=== PATIENT | female | born 1970 | race Caucasian/White ===

== ENCOUNTER 2020-01-29 20:09 | Emergency (ER) | payer SELFPAY ==
[~2020-01-29] VITALS: Ht 162.6 cm; Wt 97.5 kg
--- OUTSIDE RECORDS SUMMARY | 2020-01-29 20:12 | XMS REPORT ---
Author Author [facility] Organization [facility] Address Unknown Phone Unavailable Care Team Providers Care Expeller Worker Name Role Phone Unavailable Unavailable Payers Payer Name Policy Type Policy Number Effective Date Expiration D ate Problems This patient has no known problems. Allergies, Adverse Reactions, Alerts Allergy Name Allergy Type Status Severity Reaction(s) Onset Date Inacti ve Date Treating Clinician Comments No Known Allergies DA Active U 2017-02-10 00:00:00 Medications This patient has no known medications.
[2020-01-29] MEDS ORDERED: METHYLPREDNISOLONE SOD SUCC 125 MG/2ML VIAL IV STA (20:37)
[2020-01-29] MEDS ORDERED: KETOROLAC TROMETHAMINE 30 MG/ML VIAL IV STA (20:37)
[2020-01-29] MEDS ORDERED: SODIUM CHLORIDE FLUSH 10 ML SYR INJ PRN (20:45)
[2020-01-29 20:46] LABS: BASOPHILS % 0.5 % (0.0-1.0); EOSINOPHILS # (AUTO) 0.2 (0.0-0.4); EOSINOPHILS % 2.3 % (0.0-6.0); HEMATOCRIT 27.5 % (34.2-44.1); HEMOGLOBIN 8.2 g/dL (12.0-16.0); LYMPHOCYTES # (AUTO) 1.6 (1.0-3.2); LYMPHOCYTES % 21.6 % (18.0-39.1); MEAN CORPUSCULAR HGB CONC 29.8 g/dL (31-35); MEAN CORPUSCULAR VOLUME 70.3 fL (81-99); MONOCYTES # (AUTO) 0.5 (0.2-0.8); MONOCYTES % 7.4 % (4.4-11.3); NEUTROPHILS % 67.9 % (38.7-80.0); PLATELET COUNT 220 x10e3/uL (140-360); RED BLOOD COUNT 3.91 x10e6/uL (3.6-5.1); RED CELL DISTRIBUTION WIDTH 17.1 % (11.7-14.4)
[2020-01-29 21:00] LABS: ALANINE AMINOTRANSFERASE 27 IU/L (0-55); ALBUMIN 3.5 g/dL (3.5-5.0); ALBUMIN/GLOBULIN RATIO 1.2 (0.8-2.0); ALKALINE PHOSPHATASE 106 IU/L (40-150); BLOOD UREA NITROGEN 12 mg/dL (7-26); BUN/CREATININE RATIO 14 (6-25); CALCIUM 8.9 mg/dL (8.4-10.2); CARBON DIOXIDE 26 mmol/L (22-29); CHLORIDE 109 mmol/L (98-107); CREATINE KINASE 56 IU/L (29-168); CREATININE, SERUM 0.85 mg/dL (0.57-1.11); EST GLOMERULAR FILTRATION RATE > 60 ML/MIN (60-); GLUCOSE 98 mg/dL (74-118); MAGNESIUM 1.8 MG/DL (1.3-2.1); SODIUM 141 mmol/L (136-145)
--- NOTE | 2020-01-29 22:04 | NUR ---
Patient resting with no distress noted. States pain is better at this time.
--- NOTE | 2020-01-29 22:16 | Diagnostic Imaging Report ---
X-ray right knee 3 views HISTORY: Pain. COMPARISON: None available. FINDINGS: Bones: No acute displaced fracture. Osseous alignment is within normal limits. Joints: The joint spaces are well-maintained. Soft tissues: The soft tissues appear unremarkable. IMPRESSION: No acute radiographic osseous abnormality. Signed by: Ander Fried DO on 01/29/2020 10:13 PM
--- NOTE | 2020-01-29 22:16 | Diagnostic Imaging Report ---
EXAMINATION: CHEST SINGLE (PORTABLE) INDICATION: Chest pain COMPARISON: None FINDINGS: TUBES and LINES: None. LUNGS: Normal lung volumes. Subtle left basolateral haziness No consolidations. PLEURA: No pleural effusion or pneumothorax. HEART AND MEDIASTINUM: The cardiomediastinal silhouette is unremarkable. BONES AND SOFT TISSUES: No acute osseous lesion. Soft tissues are unremarkable. UPPER ABDOMEN: No free air under the diaphragm. IMPRESSION: Subtle left basolateral haziness can be due to atelectasis or pneumonia versus attenuation from extrathoracic soft tissues. Signed by: Ander Fried DO on 01/29/2020 10:12 PM
[2020-01-29] MEDS ORDERED: FERROUS SULFAT325 M1 PO (22:36)
[2020-01-29] MEDS ORDERED: COLACE100 MG PO (22:36)
[2020-01-29] MEDS ORDERED: PREDNISONE20 MG PO (22:36)
[2020-01-29 22:39] VITALS: BP 122/74
== END 2020-01-29 22:43 | disposition home or self-care (01) ==
LOC: ER 20:09
DX: R07.89 Other chest pain (principal); D50.9 Iron deficiency anemia, unspecified
CPT/HCPCS: 36415; 71045; 73562; 80053; 82550; 82553; 83735; 84484; 84702; 85025; 85379; 93005; 99284; J1885; J2930